=== PATIENT | female | born 1990 | race Hispanic/Latino ===

== ENCOUNTER → 2024-05-03 | Outpatient (CLI) | payer BC, SELFPAY ==
[2024-05-03 17:09] LABS: Absolute Neutrophil Count 3.9 X10^3/uL (2.0-7.7); Basophil# 0.03 X10^3/uL; Basophil% 0.5 % (0-1); Eosinophil# 0.19 X10^3/uL; Hematocrit 38.3 % (37-47); Hemoglobin 13.5 g/dL (12.0-15.0); Lymphocyte % 29.6 % (19-41); Mean Corp Hgb Conc 35.2 g/dL (32-36); Mean Corpuscular Hgb 32.6 pg (27.0-32.0); Mean Corpuscular Volume 92.5 fL (81-99); Mean Platelet Vol. 9.6 fl (6.2-12.0); Monocyte# 0.36 X10^3/uL; Monocyte% 5.6 % (0-10); NRBC Flagged by Analyzer 0 % (0-5); Neutrophil # 3.91 X10^3/uL (2.7-7.7); Platelet Count 272 K/mm3 (150-450); RBC Distribution Width CV 11.7 % (11.6-14.6); RBC Distribution Width SD 39.4 fl (35.1-43.9); Red Blood Count 4.14 M/mm3 (4.2-5.4); White Blood Count 6.4 K/mm3 (4.4-11.0)
[2024-05-03 17:54] LABS: Hepatitis B Surface Antigen Nonreactive (Nonreactive); Hepatitis C Antibody Nonreactive (Nonreactive); Syphilis Antibodies No_Result (Nonreactive)
[2024-05-03 17:58] LABS: Free T3 3.2 pg/mL (2.18-3.98); HIV Nonreactive (Nonreactive)
[2024-05-07 21:07] LABS: Chlamydia By Nucleic Acid AMP Negative (Negative); Gonococcus By Nucleic Acid AMP Negative (Negative)
[2024-05-09 13:08] LABS: HPV APTIMA, High Risk Negative (Negative)
== END | disposition home or self-care (01) ==
LOC: BWCLAB 15:47
PROVIDERS: Referring Provider Nurse Practitioner Family; Visit Provider Nurse Practitioner Family
DX: Z11.3 Encounter for screening for infections with a predominantly sexual mode of transmission (principal); N89.8 Other specified noninflammatory disorders of vagina; Z13.29 Encounter for screening for other suspected endocrine disorder; N91.2 Amenorrhea, unspecified
CPT/HCPCS: 36415; 84439; 84443; 84481; 85025; 86695; 86696; 86703; 86780; 86803; 87070; 87205; 87340; 87491; 87591; 87624; 88175; G0145

== ENCOUNTER → 2024-05-17 | Outpatient (CLI) | payer BC, SELFPAY ==
--- NOTE | 2024-05-17 18:07 | US_ITS ---
PROCEDURE: PELVIC W/ TRANSVAGINAL REASON FOR EXAM: PELVIC PAIN TECHNIQUE: Transabdominal and transvaginal pelvic ultrasound COMPARISON: None FINDINGS: LMP: May 10, 2024. Measurements: Uterus: 8.6 cm x 5.5 cm x 3.5 cm with a volume of 86.45 mL Endometrial Thickness: 7.3 mm Right Ovary: 3.1 cm x 2.1 cm x 1.4 cm with a volume of 7.91 mL. Left Ovary: 2.7 cm x 1.9 cm x 1.5 cm with a volume of 4.85 mL. TRANSABDOMINAL: Uterus: Unremarkable. Endometrium: 7.3 mm Right ovary: Normal size and echotexture. Left ovary: Normal size and echotexture. Other: No large pelvic mass identified. Transvaginal sonography was performed to better visualize the endometrium. TRANSVAGINAL: Uterus: Anteverted. Endometrium: Normal echotexture. Right ovary: Normal size and echotexture. Left ovary: Normal size and echotexture. Other adnexal findings: None. Cul-de-sac: No free intraperitoneal fluid identified. Tenderness: No tenderness US/Pelvic w/ Transvaginal IMPRESSION: NORMAL TRANSABDOMINAL AND TRANSVAGINAL PELVIC ULTRASOUND. Reading Location: [place] [id number]
== END | disposition home or self-care (01) ==
PROVIDERS: Referring Provider Nurse Practitioner Family; Visit Provider Nurse Practitioner Family
DX: R10.2 Pelvic and perineal pain (principal)
CPT/HCPCS: 76830; 76856